=== PATIENT | male | born 1965 | race Caucasian/White ===

== ENCOUNTER → 2024-02-15 12:49 | Outpatient (BNVA) | payer OTHER, SELFPAY | PROVIDERS: Visit Provider Physician Assistant Medical | DX: S06.0X0A Concussion without loss of consciousness, initial encounter (principal); S16.1XXA Strain of muscle, fascia and tendon at neck level, initial encounter; W00.0XXA Fall on same level due to ice and snow, initial encounter | CPT/HCPCS: 72052; 99202 ==

== ENCOUNTER → 2024-02-17 14:53 | Outpatient (BNVA) | payer OTHER, SELFPAY | PROVIDERS: Visit Provider Physician Assistant Medical | DX: S06.0X0A Concussion without loss of consciousness, initial encounter (principal); S16.1XXA Strain of muscle, fascia and tendon at neck level, initial encounter; W00.0XXA Fall on same level due to ice and snow, initial encounter; R42 Dizziness and giddiness | CPT/HCPCS: 70450; 72125; 99214 ==

== ENCOUNTER → 2024-02-25 08:04 | Outpatient (BNVA) | payer OTHER, SELFPAY | PROVIDERS: Visit Provider Internal Medicine | DX: S06.0X0A Concussion without loss of consciousness, initial encounter (principal); W00.0XXA Fall on same level due to ice and snow, initial encounter; H53.8 Other visual disturbances; R51.9 Headache, unspecified | CPT/HCPCS: 99214 ==

== ENCOUNTER → 2024-03-06 10:49 | Outpatient (BNVA) | payer OTHER, SELFPAY | PROVIDERS: Visit Provider Physician Assistant Medical | DX: S06.0X0D Concussion without loss of consciousness, subsequent encounter (principal); W00.0XXD Fall on same level due to ice and snow, subsequent encounter; G43.709 Chronic migraine without aura, not intractable, without status migrainosus | CPT/HCPCS: 99213 ==

== ENCOUNTER → 2024-03-28 10:44 | Outpatient (BNVA) | payer OTHER, SELFPAY | PROVIDERS: Visit Provider Physician Assistant Medical | DX: F07.81 Postconcussional syndrome (principal); M54.2 Cervicalgia; S16.1XXD Strain of muscle, fascia and tendon at neck level, subsequent encounter; W00.0XXD Fall on same level due to ice and snow, subsequent encounter | CPT/HCPCS: 99214 ==

== ENCOUNTER 2024-04-11 18:51 | Outpatient (REF) | payer OTHER, SELFPAY | END 2024-04-11 18:52 | disposition home or self-care (01) | LOC: HO.MRI 18:51 | PROVIDERS: Visit Provider Internal Medicine | DX: R51.9 Headache, unspecified (principal) | CPT/HCPCS: 70551; 72141 ==

== ENCOUNTER → 2024-04-11 19:05 | Outpatient (BNV) | payer OTHER, SELFPAY | PROVIDERS: Visit Provider Radiology Diagnostic Radiology | DX: M48.02 Spinal stenosis, cervical region (principal); S06.0X0A Concussion without loss of consciousness, initial encounter | CPT/HCPCS: 70551; 72141 ==

== ENCOUNTER → 2024-04-19 11:04 | Outpatient (BNVA) | payer OTHER, SELFPAY | PROVIDERS: Visit Provider Physician Assistant Medical | DX: F07.81 Postconcussional syndrome (principal); M54.2 Cervicalgia | CPT/HCPCS: 99213 ==

== ENCOUNTER → 2024-05-15 13:32 | Outpatient (BNVA) | payer OTHER, SELFPAY | PROVIDERS: Visit Provider Physician Assistant Medical | DX: F07.81 Postconcussional syndrome (principal); M54.2 Cervicalgia | CPT/HCPCS: 99213 ==

== ENCOUNTER → 2024-06-05 16:05 | Outpatient (BNVA) | payer OTHER, SELFPAY | PROVIDERS: Visit Provider Physician Assistant Medical | DX: F07.81 Postconcussional syndrome (principal); M54.2 Cervicalgia; M54.81 Occipital neuralgia | CPT/HCPCS: 99213 ==

== ENCOUNTER → 2024-07-06 16:15 | Outpatient (BNVA) | payer OTHER, SELFPAY | PROVIDERS: Visit Provider Physician Assistant Medical | DX: M54.2 Cervicalgia (principal); F07.81 Postconcussional syndrome; M54.81 Occipital neuralgia | CPT/HCPCS: 99213 ==

== ENCOUNTER 2024-07-12 14:28 | Outpatient (AMB) | payer OTHER, SELFPAY ==
[2024-07-12 14:32] VITALS: BP 123/79; O2SAT 93; BMI 35.6
--- OUTSIDE RECORDS SUMMARY | 2024-07-12 14:32 | XMS_ITS | Encounter Summary ---
Author Organization [facility] Address [address] [place] [address] Care Team Providers Care Patrol Officer Name Role Phone Ernestine Trejo MD Primary Care Provider Leticia pierce Encounter Details Date Type Department Care Team Description 01/26/2017 Transfer Records Medical Records [address] [place] [id number] Abstract, Provider Social History Tobacco Use Types Packs/Day Years Used Date Smoking Tobacco: Never Assessed Sex Assigned at Date Recorded Not on file Job Start Date Occupation Industry Not on file Not on file Not on file documented as of this encounter Plan of Treatment Not on file documented as of this encounter Visit Diagnoses Not on filedocumented in this encounter Care Teams Patrol Officer Relationship Specialty Start Date End Date Ernestine Trejo MD PCP - General Internal Medicine 01/19/17 documented as of this encounter
--- OUTSIDE RECORDS SUMMARY | 2024-07-12 14:33 | XMS_ITS | Encounter Summary ---
Author Organization [facility] Address [address] [place] [address] Care Team Providers Care Parallel Computing Software Engineer Name Role Phone Ernestine Trejo MD Primary Care Provider Unava ilable Reason for Visit * Reason Comments E-prescribe Rx Request Encounter Details Date Type Department Care Team Description 03/05/2018 Refill Internal Medicine - [address], [address] [place] [address] Ernestine Trejo MD E-prescribe Rx Request Social History Tobacco Use Types Packs/Day Years Used Date Smoking Tobacco: Never Smokeless Tobacco: Never Alcohol Use Standard Drinks/Week Comments No 0 (1 standard drink = 0.6 oz pur e alcohol) Sex Assigned at Date Recorded Not on file Job Start Date Occupation Industry Not on file Not on file Not on file documented as of this encounter Miscellaneous Notes * Telephone Encounter - John Martinez M.A. - 03/09/2018 11:15 AM EST [employer] IN [employer] * Telephone Encounter - John Martinez M.A. - 03/09/2018 11:09 AM EST L/S 07/15/17 F/UP 04/05/18 documented in this encounter Plan of Treatment Not on file documented as of this encounter Visit Diagnoses Not on filedocumented in this encounter Care Teams Parallel Computing Software Engineer Relationship Specialty Start Date End Date Ernestine Trejo MD PCP - General Internal Medicine 01/19/17 documented as of this encounter
--- OUTSIDE RECORDS SUMMARY | 2024-07-12 14:33 | XMS_ITS | Clinical Summary ---
Author Organization [facility] Address [address] [place] [address] Phone Care Team Providers Care Emery Wheel Worker Name Role Phone Ernestine Trejo MD Primary Care Provider Allergies Active Allergy Reactions Criticality Noted Date Comments Lamotrigine Itching 12/13/2008 Medications amLODIPine (NORVASC) 10 mg tablet TAKE 1 TABLET BY MOUTH EVERY DAY 9 Active aspirin 81 mg EC tablet Take 81 mg by mouth daily. Active blood-glucose meter kit 1 Device by In Vitro route 2 times daily. 8 Active FREESTYLE LANCETS MISC USE TO TEST TWICE DAILY 8 Active gabapentin (NEURONTIN) 100 mg capsule Take 1 Cap by mouth daily. 9 Active glipiZIDE (GLUCOTROL XL) 10 mg 24 hr tablet Take 1 Tab by mouth 2 times daily. 9 Active blood sugar diagnostic (FreeStyle Lite Strips) test strip USE TO TEST TWICE DAILY 8 Active losartan-hydroC HLOROthiazide (HYZAAR) 100-25 mg per tablet TAKE 1 TABLET BY MOUTH EVERY DAY 9 Active metFORMIN (GLUCOPHAGE) 500 mg tablet Take 1 Tab by mouth 2 times daily (with meals). 9 Active metoprolol succinate (TOPROL-XL) 100 mg 24 hr tablet Take 1 Tab by mouth daily. 9 Active omeprazole (PriLOSEC) [address] capsule Take 1 Cap by mouth daily. 9 Active sildenafiL (VIAGRA) 100 mg tablet Take one tablet an hour before needed. 9 Active simethicone (MYLICON,GAS-X) 125 mg capsule Take 1 Cap by mouth 2 times daily. 9 Active simvastatin (ZOCOR) 20 mg tablet Take 20 mg by mouth at bedtime. Active cyanocobalamin (VITAMIN B-12) 1,000 mcg tablet Take 1,000 mcg by mouth daily. Active eszopiclone (LUNESTA) 3 mg tablet Take 1 tablet (3 mg total) by mouth at bedtime. Take immediately before bedtime Max Daily Amount: 3 mg 90 each 1 5 12/10/19 25 Active Active Problems Problem Noted Date Diagnosed Date Morbid obesity with BMI of 4 0.0-44.9, adult ([facility] V24, [facility] V28) 02/10/2024 Elevated AST (SGOT) 06/10/2017 Gall bladder polyp 01/06/2017 CTS (carpal tunnel syndrome) 01/03/2017 Overview (02/10/2024): bilateral Diabetes mellitus type 2 wit h neurological manifestations ([facility] V24, [facility] V28) 01/03/2017 DM (diabetes mellitus), type 2 with peripheral vascular complications ([facility] V24, [facility] V28) 01/03/2017 Erectile dysfunction 01/03/2017 Kidney stone 01/03/2017 Seizure ([facility] V24, [facility] V28) 01/03/2017 Overview (02/10/2024): 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 Insomnia 07/15/2016 Obstructive sleep apnea syndrome 07/15/2016 Lower esophageal ring 08/26/2013 Overview (02/10/2024): Comments: Mild. Dilated 03/31/2013. Renal cyst 10/01/2011 Overview (02/10/2024): Comments: 1.0 lower pole July 2011. Umbilical hernia 10/01/2011 Overview (02/10/2024): Comments: fat-containing on CT July 2011. Hearing loss 07/28/2011 Steatosis of liver 07/20/2011 Overview (02/10/2024): Comments: mild diffuse on CT July 2011. Cholesteatoma 08/29/2010 Overview (02/10/2024): Comments: Recurrent. Hydronephrosis 06/15/2010 Overview (02/10/2024): Comments: due to kidney stone. Migraine headache 06/15/2010 Encounters Date Type Department Care Team Description 06/12/2024 8:30 AM EDT [facility] [address] [facility] [address] [place] [address] Sheila Jama MD DIAN (obstructive sleep apnea) (Primary Dx); Primary insomnia from Last 3 Months Immunizations Name Administration Dates Next Due Influenza trivalent, 0.5mL, preservative free (Fluarix; FluLaval; Fluzone) ages 6mo and older (Afluria) 3 years and older 01/06/2017,02/25/2010 Pneumococcal conjugate 13 va lent (Prevnar 13, PCV13) 2mo and older 09/11/2016 Surgical History Surgery Date Site/Laterality Comments VASECTOMY PROCEDURE: HISTORICAL VASECTOMY HERNIA REPAIR PROCEDURE: HISTORICAL HERNIA REPAIR/UMB OTHER SURGICAL HISTORY PROCEDURE: HISTORICAL EAR SURGERY; COMMENT: cholesteatoma resection with temporal lobe abscess OTHER SURGICAL HISTORY PROCEDURE: HISTORICAL EAR SURGERY; COMMENT: tympanoplasty UPPER GASTROINTESTINAL ENDOSCOPY PROCEDURE: UPPER GI ENDOSCOPY/EXAM TYMPANOSTOMY TUBE PLACEMENT PROCEDURE: HISTORICAL PE TUBES ESOPHAGOGASTRODUODENOSCOPY PROCEDURE: VT ESOPHAGOGASTRODUODENOSCOPY TRANSORAL DIAGNOSTIC Medical History Medical History Date Comments DM (diabetes mellitus), type 2 with peripheral vascular complications (CMS/HCC V24, CMS/HCC V28) 01/03/2017 DX:DM (diabetes mellitus), type 2 with peripheral vascular complications (HCC) Erectile dysfunction 01/03/2017 DX:Erectile dysfunction CTS (carpal tunnel syndrome) 01/03/2017 DX: CTS (carpal tunnel syndrome); COMMENT: bilateral Diabetes mellitus type 2 wit h neurological manifestations ([facility] V24, [facility] V28) 01/03/2017 DX:Diabetes mellitus type 2 with neurological manifestations ([facility]) Seizure ([facility] V24, [facility] V28) 01/03/2017 DX:Seizure (HCC); COMMENT: 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 Gall bladder polyp 01/06/2017 DX:Gall bladd er polyp Hydronephrosis 06/15/2010 DX:Hydronephrosi s; COMMENT: Comments: due to kidney stone. Hearing loss 07/28/2011 DX:Hearing loss Hyperlipidemia 11/13/2016 DX:Hyperlipidemi a Hypertension 11/13/2016 DX:Hypertension Insomnia 07/15/2016 DX:Insomnia Lower esophageal ring 08/26/2013 DX:Lower e sophageal ring; COMMENT: Comments: Mild. Dilated 03/31/2013. Migraine headache 06/15/2010 DX:Migraine he adache Morbid obesity with BMI of 4 0.0-44.9, adult ([facility] V24, [facility] V28) 07/15/2016 DX:Morbid obesity wit h BMI of 40.0-44.9, adult ([facility]) Obstructive sleep apnea syndrome 07/15/2016 DX:Obstructive sleep apnea syndrome Renal cyst 10/01/2011 DX:Renal cyst; C OMMENT: Comments: 1.0 lower pole July 2011. Stricture of esophagus 09/11/2016 DX:Strict ure of esophagus; COMMENT: Comments: S/P Dilation 2004, 2007, March 2009. Umbilical hernia 10/01/2011 DX:Umbilical he rnia; COMMENT: Comments: fat-containing on CT July 2011. Social History Tobacco Use Types Packs/Day Years Used Date Smoking Tobacco: Never Smokeless Tobacco: Never Alcohol Use Standard Drinks/Week Comments No 0 (1 standard drink = 0.6 oz pur e alcohol) Sex and Gender Information Value Date Recorded Sex Assigned at Not on file Legal Sex Male 7:07 AM EST Gender Identity Not on file Sexual Orientation Not on file Obstetrics History Last Filed Vital Signs Vital Sign Reading Time Taken Comments Blood Pressure 120/76 06/12/2024 8:36 AM EDT Pulse 84 06/12/2024 8:36 AM EDT Temperature 36.1 ??C (97 ??F) 06/12/2024 8:36 AM EDT Respiratory Rate 20 06/12/2024 8:36 AM EDT Oxygen Saturation 93% 06/12/2024 8:36 AM EDT Inhaled Oxygen Concentration - - Weight 112 kg (247 lb 12.8 oz) 06/12/2024 8:36 A M EDT Height 172.7 cm (5' 8 ) 06/12/2024 8:36 AM EDT Body Mass Index 37.68 06/12/2024 8:36 AM EDT Plan of Treatment Upcoming Encounters Date Type Department Care Team (Late st Contact Info) Description 12/13/2024 8:30 AM EDT Office Visit Pulmonolgy - [place] [address] [place] [address] Sheila Jama MD [address] [facility] [address] [place] [address] Health Maintenance Due Date Last Done Comments Diabetes: Annual Foot Exam 10/26/1973 Diabetes: Annual Retina Eye Exam 10/26/1973 Diabetes: Annual GFR (Glomerular Filtration Rate) 04/28/2019 04/28/2018 Depression Screening 02/07/2022 HIV Screening 02/07/2022 Hepatitis C Screening 02/07/2022 Social Influencers of Health Screening 02/07/2022 Diabetes: Annual Urine Albumin-Creatinine Ratio (uACR) 02/10/2022 04/28/2018 Diabetes: Blood Sugar Control Test (HGBA1C) 02/10/2022 04/28/2018 Hypertension/CHF/CAD Annual BMP Blood Test 02/10/2022 04/28/2018 Pneumococcal Vaccine: 50+ Years (3 of 3 - PCV20 or PCV21) 06/05/2022 06/05/2017, 09/11/2016, 05/12/2012 Pneumococcal Vaccine: Pediatrics (0 to 5 Years) and At-Risk Patients (6 to 64 Years) (3 of 3 - PCV20 or PCV21) 06/05/2022 06/05/2017, 09/11/2016, 05/12/2012 Cholesterol Screening (Lipid Panel) 04/28/2023 04/28/2018 Colorectal Cancer Screening: Colonoscopy 04/29/2026 04/29/2016 DTaP,Tdap,and Td Vaccines (2 - Td or Tdap) 06/06/2027 06/05/2017 Zoster Vaccines Completed 10/12/2017, 06/05/2017 Influenza Vaccine Completed 12/06/2023, , 12/12/2021, Additional history exists COVID-19 Vaccine Completed 12/21/2023, 04/2021, 07/13/2020, Additional history exists RSV Immunization Adult Patients Completed 12/21/2023 HIB Vaccines Aged Out No longer eligi ble based on patient's age to complete this topic HPV Vaccines Aged Out No longer eligi ble based on patient's age to complete this topic Hepatitis A Vaccines Aged Out No long er eligible based on patient's age to complete this topic Hepatitis B Vaccines Aged Out No long er eligible based on patient's age to complete this topic IPV Vaccines Aged Out No longer eligi ble based on patient's age to complete this topic MMR Vaccines Aged Out No longer eligi ble based on patient's age to complete this topic Meningococcal ACWY Vaccine Aged Out N o longer eligible based on patient's age to complete this topic Meningococcal B Vaccine Aged Out No l onger eligible based on patient's age to complete this topic RSV Immunization Patients Under 20 months Aged Out No longer eligible based on patient's age to complete this topic Varicella Vaccines Aged Out No longer eligible based on patient's age to complete this topic Procedures Procedure Name Priority Date/Time Associated Diagnosis Comments URINE ALBUMIN CREATININE RATIO Routine 04/28/2018 ANNUAL BMP BLOOD TEST Routine 04/28/2018 HEMOGLOBIN A1C Routine 04/28/2018 LIPID PANEL Routine 04/28/2018 COLONOSCOPY Routine 04/29/2016 from Last 3 Months or Most Recently Relevant to Health Maintenance Results * Urine Albumin Creatinine Ratio (04/28/2018) Pathologist [facility] Urine Albumin Creatinine Ratio Abstracted Result [facility] Provider HEALTH MAINTENANCE Final Result * Annual BMP Blood Test (04/28/2018) Pathologist [facility] Annual BMP Blood Test Abstracted Result [facility] HEALTH MAINTENANCE Final Result * (ABNORMAL) Hemoglobin A1c (04/28/2018) [facility] Hemoglobin A1C 8.3(A) <=6.5 % Blood Venous blood specimen / Unknown Result [facility] Provider LAB BLOOD ORDERABLES Dilma l Result * (ABNORMAL) Lipid panel (04/28/2018) [facility] LDL/HDL Ratio 5(A) 0 - 4 Triglycerides 121 0 - 150 mg/dL Cholesterol 180 0 - 200 mg/dL HDL 39(A) >=40 mg/dL LDL Cholesterol 117(A) 0 - 100 mg/dL Blood Venous blood specimen / Unknown Result [facility] Provider LAB BLOOD ORDERABLES Dilma l Result * Colonoscopy (04/29/2016) [facility] Colonoscopy Abstracted, no interpretation Anatomical Region Laterality Modality Other Result [facility] HEALTH MAINTENANCE Final Result from Last 3 Months or Most Recently Relevant to Health Maintenance Insurance [employer] Care Teams Emery Wheel Worker Relationship Specialty Start Date End Date Ernestine Trejo MD [address] [place] [id number] PCP - General Internal Medicine 01/19/17
--- OUTSIDE RECORDS SUMMARY | 2024-07-12 14:33 | XMS_ITS | Clinical Summary ---
Author Organization [facility] Address [address] [place] [address] Care Team Providers Care Proteomics Scientist Name Role Phone Unavailable Primary Care Provider Unavailabl e Social History Tobacco Use Types Packs/Day Years Used Date Smoking Tobacco: Never Assessed Sex and Gender Information Value Date Recorded Sex Assigned at Not on file Legal Sex Male 8:05 PM EDT Gender Identity Not on file Sexual Orientation Not on file Plan of Treatment Health Maintenance Due Date Last Done Comments Hepatitis C Screening 1965 DTaP/Tdap/Td (1 - Tdap) 10/26/1981 Pneumococcal 50+ years (1 of 1 - PCV) 10/26/2013 Zoster (Shingrix) (1 of 2) 10/26/2013 COVID-19 Vaccine ( - 2023-2 5 season) 2023 Influenza (#1) 2023 RSV (1 - 1-dose 75+ series) 10/26/2038 HPV Vaccine Aged Out No longer eligi ble based on patient's age to complete this topic Hep A Aged Out No longer eligi ble based on patient's age to complete this topic Hep B Aged Out No longer eligi ble based on patient's age to complete this topic Hib Aged Out No longer eligi ble based on patient's age to complete this topic Meningococcal ACWY Aged Out No longer eligible based on patient's age to complete this topic Zoster (Zostavax) Discontinued
--- OUTSIDE RECORDS SUMMARY | 2024-07-12 14:33 | XMS_ITS | Encounter Summary ---
Author Organization [facility] Address [address] [place] [address] Care Team Providers Care Architectural Modeler Name Role Phone Ernestine Trejo MD Primary Care Provider Leticia pierce Encounter Details Date Type Department Care Team Description 06/09/2023 Telephone Pulmonology - [place] [address] [facility] [address] [place] [address] Sheila Jama MD [address] [place] [address] Social History Tobacco Use Types Packs/Day Years [...] encounter Miscellaneous Notes * Telephone Encounter - Esmer Goss M.A. - 06/11/2023 10:15 AM EDT There is no compliance report for this patient in [facility]. I have also contacted [facility] to see if maybe he wasn't linked in [facility] however they stated that they have the patient as inactive in theirsystem. Please advise. * Telephone Encounter - Sheila Jama MD - 06/09/2023 5:17 PM EDT Please get a complianc ereport for his CPAP documented in this encounter Plan of Treatment Not on file documented as of this encounter Visit Diagnoses Not on filedocumented in this encounter Care Teams Architectural Modeler Relationship Specialty Start Date End Date Ernestine Trejo MD PCP - General Internal Medicine 01/19/17 documented as of this encounter
--- OUTSIDE RECORDS SUMMARY | 2024-07-12 14:33 | XMS_ITS | Encounter Summary ---
Author Organization [facility] Address [address] [place] [address] Care Team Providers Care Robotic Machine Operator Name Role Phone Ernestine Trejo MD Primary Care Provider Leticia pierce Encounter Details Date Type Department Care Team Description 03/16/2017 Orders Only Pulmonology - [place] [address] [facility] [address] [place] [address] Sheila Jama MD [address] [place] [address] Insomnia, unspecified type (Primary Dx) Social History Tobacco Use Types Packs/Day Years [...] documented as of this encounter Visit Diagnoses Diagnosis Insomnia, unspecified type- Primary documented in this encounter Care Teams Robotic Machine Operator Relationship Specialty Start Date End Date Ernestine Trejo MD PCP - General Internal Medicine 01/19/17 documented as of this encounter
--- OUTSIDE RECORDS SUMMARY | 2024-07-12 14:33 | XMS_ITS | Encounter Summary ---
Author Organization [facility] Address [address] [place] [address] Care Team Providers Care Manager Facility Name Role Phone Ernestine Trejo MD Primary Care Provider Leticia pierce Encounter Details Date Type Department Care Team Description 08/16/2019 Telephone Pulmonology - [place] [address] [facility] [address] [place] [address] Sheila Jama MD [address] [place] [address] Social History Tobacco Use Types [...] on filedocumented in this encounter Care Teams Manager Facility Relationship Specialty Start Date End Date Ernestine Trejo MD PCP - General Internal Medicine 01/19/17 documented as of this encounter
--- OUTSIDE RECORDS SUMMARY | 2024-07-12 14:33 | XMS_ITS | Encounter Summary ---
Author Organization [facility] Address [address] [place] [address] Care Team Providers Care Confectionery Drops Machine Operator Name Role Phone Ernestine Trejo MD Primary Care Provider Leticia pierce Encounter Details Date Type Department Care Team Description 12/23/2017 Hospital Medical Records [address] [place] [address] Trish Munson MD [address] [place] [id number] Social History Tobacco Use Types Packs/Day Years [...] on filedocumented in this encounter Care Teams Confectionery Drops Machine Operator Relationship Specialty Start Date End Date Ernestine Trejo MD PCP - General Internal Medicine 01/19/17 documented as of this encounter
--- OUTSIDE RECORDS SUMMARY | 2024-07-12 14:33 | XMS_ITS | Encounter Summary ---
Author Organization [facility] Address [address] [place] [address] Care Team Providers Care Sky Line Yarder Name Role Phone Ernestine Trejo MD Primary Care Provider Unava ilable Reason for Visit * Reason Comments E-prescribe Rx Request Encounter Details Date Type Department Care Team Description 03/05/2021 Refill Pulmonology - [place] [address] [facility] [address] [place] [address] Sheila Jama MD [address] [place] [address] E-prescribe Rx Request Social History Tobacco Use [...] encounter Miscellaneous Notes * Telephone Encounter - Tamia Cortez - 03/21/2021 10:16 AM EST Patient would like script to be: E-PRESCRIBED/FAXED TO PHARMACY WHEN WAS THE PATIENT'S LAST APPOINTMENT WITH THE PRESCRIBING PROVIDER? 12/22/19 Does patient have an upcoming appointment? No. Left message for patient to call to schedule a follow up (THE MEDICATION REQUESTED IS ON THE MED LIST ABOVE) All of the medications requested were on the CURRENT MEDS list Did you check the Pharmacy information above?: YES Patient wants: 30 -day supply Is this a mail order prescription request ? NO Patients current insurance carrier is: Payor: [employer] [facility] [employer] / Plan: POS $20 [place] [id number] /Product Type: PPO [id number] documented in this encounter Plan of Treatment Not on file documented as of this encounter Visit Diagnoses Not on filedocumented in this encounter Care Teams Sky Line Yarder Relationship Specialty Start Date End Date Ernestine Trejo MD PCP - General Internal Medicine 01/19/17 documented as of this encounter
--- OUTSIDE RECORDS SUMMARY | 2024-07-12 14:33 | XMS_ITS | Encounter Summary ---
Author Organization [facility] Address [address] [place] [address] Care Team Providers Care Making Department Preparer Name Role Phone Ernestine Trejo MD Primary Care Provider Leticia pierce Encounter Details Date Type Department Care Team Description 08/02/2019 Orders Only Pulmonology - [place] [address] [facility] [address] [place] [address] Sheila Jama MD [address] [place] [address] Insomnia, unspecified type (Primary Dx) [...] Primary documented in this encounter Care Teams Making Department Preparer Relationship Specialty Start Date End Date Ernestine Trejo MD PCP - General Internal Medicine 01/19/17 documented as of this encounter
--- OUTSIDE RECORDS SUMMARY | 2024-07-12 14:33 | XMS_ITS | Encounter Summary ---
Author Organization [facility] Address [address] [place] [address] Care Team Providers Care Steam Hand Name Role Phone Ernestine Trejo MD Primary Care Provider Unava ilable Reason for Visit * Reason Onset Date Comments refill request 08/17/2019 Encounter Details Date Type Department Care Team Description 08/17/2019 Refill Pulmonology - [place] [address] [facility] [address] [place] [id number] Sheila Jama MD [address] [place] [phone] refill request Social History Tobacco Use Types Packs/Day Years [...] encounter Miscellaneous Notes * Telephone Encounter - Robreta Mukherjee - 08/17/2019 10:36 AM EDT KAREN 12/20/2018 NEXT 12/22/2019 90 DAY SUPPLY documented in this encounter Plan of Treatment Not on file documented as of this encounter Visit Diagnoses Not on filedocumented in this encounter Care Teams Steam Hand Relationship Specialty Start Date End Date Ernestine Trejo MD PCP - General Internal Medicine 01/19/17 documented as of this encounter
--- OUTSIDE RECORDS SUMMARY | 2024-07-12 14:33 | XMS_ITS | Encounter Summary ---
Author Organization [facility] Address [address] [place] [address] Care Team Providers Care Audio Recording Engineer Name Role Phone Ernestine Trejo MD Primary Care Provider Unava ilable Reason for Visit * Reason Comments E-prescribe Rx Request Encounter Details Date Type Department Care Team Description 07/15/2018 Refill Adult Med - [place] [address] [place] [address] Scar Valenzuela MD E-prescribe Rx Request Social History Tobacco [...] encounter Miscellaneous Notes * Telephone Encounter - Lamar Valdez L.P.NRosa - 07/19/2018 2:37 PM EDT Called Ernestine Trejo new office she is on maternity leave till mid August Last appt 04/29/2018 for a PE Ernestine Trejo Lab Results Component Value Date NA 140 04/28/2018 K 4.1 04/28/2018 CO2 27 04/28/2018 CL 105 04/28/2018 BUN 14 04/28/2018 CREAT 1.00 04/28/2018 GLU 193 04/28/2018 CA 9.3 04/28/2018 GFR > 60 04/28/2018 * Telephone Encounter - Bernard Simon - 07/19/2018 1:25 PM EDT Patient is going to be following Dr. Trejo. But he needs enough medication to be called in for him till he sees her at the end of September. * Telephone Encounter - Shana Martinez M.A. - 07/19/2018 10:25 AM EDT Patient needs a pcp and a follow up appointment. * Telephone Encounter - Estelle Hamm C.M.A. - 07/15/2018 4:22 PM EDT This is not our patient. documented in this encounter Plan of Treatment Not on file documented as of this encounter Visit Diagnoses Not on filedocumented in this encounter Care Teams Audio Recording Engineer Relationship Specialty Start Date End Date Ernestine Trejo MD PCP - General Internal Medicine 01/19/17 documented as of this encounter
--- OUTSIDE RECORDS SUMMARY | 2024-07-12 14:33 | XMS_ITS | Encounter Summary ---
Author Organization [facility] Address [address] [place] [address] Care Team Providers Care Daily Release And Dupe Printer Name Role Phone Ernestine Trejo MD Primary Care Provider Unava ilable Reason for Visit * Reason Onset Date Comments Faxed Refill 02/05/2020 Encounter Details Date Type Department Care Team Description 02/05/2020 Refill Pulmonology - [place] 175 [facility] [address] [place] [address] Sheila Jama MD [address] [place] [phone] Faxed Refill Social History Tobacco Use Types Packs/Day Years [...] encounter Miscellaneous Notes * Telephone Encounter - Chris Marr - 02/05/2020 11:56 AM EST KAREN- .Dec- 1 year f/u documented in this encounter Plan of Treatment Not on file documented as of this encounter Visit Diagnoses Diagnosis Insomnia, unspecified type documented in this encounter Care Teams Daily Release And Dupe Printer Relationship Specialty Start Date End Date Ernestine Trejo MD PCP - General Internal Medicine 01/19/17 documented as of this encounter
--- OUTSIDE RECORDS SUMMARY | 2024-07-12 14:33 | XMS_ITS | Encounter Summary ---
Author Organization [employer] [facility] Address [address] [place] [address] Care Team Providers Care Junior Systems Analyst Name Role Phone Ernestine Trejo MD Primary Care Provider Unava ilable Reason for Visit * Reason Comments E-prescribe Rx Request Encounter Details Date Type Department Care Team Description 03/19/2018 Refill Internal Medicine - [address], [address] [place] [address] Ernestine Trejo MD E-prescribe Rx Request Social [...] Telephone Encounter - John Martinez M.A. - 03/21/2018 12:43 PM EST Covering provider LAST SEEN 07/15/17 ?? F/UP 04/05/18 documented in this encounter Plan of Treatment Not on file documented as of this encounter Visit Diagnoses Not on filedocumented in this encounter Care Teams Junior Systems Analyst Relationship Specialty Start Date End Date Ernestine Trejo MD PCP - General Internal Medicine 01/19/17 documented as of this encounter
--- OUTSIDE RECORDS SUMMARY | 2024-07-12 14:33 | XMS_ITS | Encounter Summary ---
Author Organization [email or web address] [facility] Address [address] [place] [address] Care Team Providers Care Air Traffic Control Operator Name Role Phone Ernestine Trejo MD Primary Care Provider Unava ilable Reason for Visit * Reason Comments E-prescribe Rx Request Encounter Details Date Type Department Care Team Description 01/20/2019 Refill Pulmonology - [place] 175 [facility] [address] [place] [address] Sheila Jama MD [address] [place] [address] E-prescribe Rx Request Social History [...] encounter Miscellaneous Notes * Telephone Encounter - Karena Valdez - 01/20/2019 2:24 PM EST Patient would like script to be: E-PRESCRIBED/FAXED TO PHARMACY WHEN WAS THE PATIENT'S LAST APPOINTMENT WITH THE PRESCRIBING PROVIDER? 12/20/18 Does patient have an upcoming appointment? NO (THE MEDICATION REQUESTED IS ON THE MED LIST ABOVE) All of the medications requested were on the CURRENT MEDS list Did you check the Pharmacy information above?: YES Patient wants: 30 -day supply Is this a mail order prescription request ? NO Patients current insurance carrier is: Payor: [employer] / Plan: POS $20 [place] Oink /Product Type: PPO [id number] documented in this encounter Plan of Treatment Not on file documented as of this encounter Visit Diagnoses Not on filedocumented in this encounter Care Teams Air Traffic Control Operator Relationship Specialty Start Date End Date Ernestine Trejo MD PCP - General Internal Medicine 01/19/17 documented as of this encounter
--- OUTSIDE RECORDS SUMMARY | 2024-07-12 14:33 | XMS_ITS | Encounter Summary ---
Author Organization [facility] Address [address] [place] [address] Care Team Providers Care Cook Fruit Name Role Phone Ernestine Trejo MD Primary Care Provider Unava ilable Reason for Visit * Reason Comments E-prescribe Rx Request trazadone Encounter Details Date Type Department Care Team Description 07/17/2019 Refill Pulmonology - [place] 175 [facility] [address] [place] [address] Sheila Jama MD [address] [place] [phone] E-prescribe Rx Request (trazadone) Social History Tobacco Use Types Packs/Day Years [...] encounter Miscellaneous Notes * Telephone Encounter - Jennyfer Monteiro - 08/16/2019 4:47 PM EDT Patient is calling.. Patient has yet to receive this medication at the pharmacy. Please advise. * Telephone Encounter - Tamanna Busch - 08/10/2019 10:24 AM EDT Patient still hasn't received this prescription. Can you please call Gina at [phone] once script has been sent to the pharmacy. * Telephone Encounter - Summer Thomson - 08/08/2019 1:17 PM EDT Patient following up on this request. * Telephone Encounter - Talya Kenyn - 07/21/2019 11:00 AM EDT Patient calling checking on status, * Telephone Encounter - Talya Kenny - 07/18/2019 3:34 PM EDT Patient would like script to be: E-PRESCRIBED/FAXED TO PHARMACY WHEN WAS THE PATIENT'S LAST APPOINTMENT WITH THE PRESCRIBING PROVIDER? 12.20.2018 Does patient have an upcoming appointment? No upcoming (THE MEDICATION REQUESTED IS ON THE MED LIST ABOVE) All of the medications requested were on the CURRENT MEDS list Did you check the Pharmacy information above?: YES Patient wants: 30 -day supply Is this a mail order prescription request ? NO Patients current insurance carrier is: Payor: [employer] / Plan: POS $20 [place] 1500 /Product Type: PPO [id number] documented in this encounter Plan of Treatment Not on file documented as of this encounter Visit Diagnoses Not on filedocumented in this encounter Care Teams Cook Fruit Relationship Specialty Start Date End Date Ernestine Trejo MD PCP - General Internal Medicine 01/19/17 documented as of this encounter
--- OUTSIDE RECORDS SUMMARY | 2024-07-12 14:33 | XMS_ITS | Encounter Summary ---
Author Organization [email or web address] [facility] Address [address] [place] [address] Care Team Providers Care Clinical Trial Educator Name Role Phone Ernestine Trejo MD Primary Care Provider Unava ilable Reason for Visit * Reason Onset Date Comments Faxed Refill 01/19/2018 Encounter Details Date Type Department Care Team Description 01/19/2018 Telephone Internal Medicine - [address], [address] [place] [address] Ernestine Trejo MD Faxed Refill Social History Tobacco Use Types [...] encounter Miscellaneous Notes * Telephone Encounter - Sherly Georgesaulieu - 01/19/2018 10:11 AM EST Patient would like script to be: E-PRESCRIBED/FAXED TO PHARMACY When was the patients last office visit in Adult Medicine?: Appts were canceled When was the last time the patient saw their PCP? Same as above Does patient have an upcoming appointment? Yes 04/05/18 (THE MEDICATION IS NOT ON THE MED LIST AND IS IDENTIFIED BELOW): {MED LIST:09756) Med name: Glucose Monitor Dosage: N/a # of tablets: N/A Local pharmacy with request for 30 -day supply Instructions: Testing his sugar Did you check the pharmacy information above?: YES ([facility] on [address]) Patients would like to know if the script is being sent to the pharmacy or if she needs to fruit or nut picker the script. Patients current insurance carrier: Payor: [employer]I [place] / Plan: Bright.[employer] $20 [place] / Product Type: HMO [id number] documented in this encounter Plan of Treatment Not on file documented as of this encounter Visit Diagnoses Not on filedocumented in this encounter Care Teams Clinical Trial Educator Relationship Specialty Start Date End Date Ernestine Trejo MD PCP - General Internal Medicine 01/19/17 documented as of this encounter
--- OUTSIDE RECORDS SUMMARY | 2024-07-12 14:33 | XMS_ITS | Encounter Summary ---
Author Organization [facility] Address [address] [place] [address] Care Team Providers Care Retort Fireman Name Role Phone Ernestine Trejo MD Primary Care Provider Unava ilable Reason for Visit * Reason Comments E-prescribe Rx Request Encounter Details Date Type Department Care Team Description 01/08/2018 Refill Internal Medicine - [address], [address] [place] [address] Ernestine Trejo MD E-prescribe Rx Request Social [...] encounter Miscellaneous Notes * Telephone Encounter - Aaliyah Orellana M.A. - 01/19/2018 1:51 PM EST Lv07/15/17 Nv 04/05/18 * Telephone Encounter - Sherly Dhillon - 01/19/2018 10:53 AM EST Who is calling? Spouse: Name: Kayy Name of the medication Sildenafil Citrate What is the specific problem or interaction? Pharmacy never received the script for this medication. Can the script be sent again? If the patient is having a problem with taking the med - how long has the problem been going on? N/A * Telephone Encounter - John Martinez M.A. - 01/10/2018 11:35 AM EST LAST SEEN 12/06 F/UP 04/07 documented in this encounter Plan of Treatment Not on file documented as of this encounter Visit Diagnoses Not on filedocumented in this encounter Care Teams Retort Fireman Relationship Specialty Start Date End Date Ernestine Trejo MD PCP - General Internal Medicine 01/19/17 documented as of this encounter
--- OUTSIDE RECORDS SUMMARY | 2024-07-12 14:33 | XMS_ITS | Encounter Summary ---
Author Organization [employer] [facility] Address [address] [place] [address] Care Team Providers Care Residential Sales Associate Name Role Phone Ernestine Trejo MD Primary Care Provider Unava ilable Reason for Visit * Reason Comments E-prescribe Rx Request Encounter Details Date Type Department Care Team Description 04/05/2018 Refill Internal Medicine - [address], [address] [place] [address] Ernestine Trejo MD E-prescribe Rx Request Social [...] Telephone Encounter - John Martinez M.A. - 04/05/2018 8:57 AM EST L/s 07/15/17 ?? F/up 04/29/18 documented in this encounter Plan of Treatment Not on file documented as of this encounter Visit Diagnoses Not on filedocumented in this encounter Care Teams Residential Sales Associate Relationship Specialty Start Date End Date Ernestine Trejo MD PCP - General Internal Medicine 01/19/17 documented as of this encounter
--- OUTSIDE RECORDS SUMMARY | 2024-07-12 14:33 | XMS_ITS | Encounter Summary ---
Author Organization [email or web address] [facility] Address [address] [place] [address] Care Team Providers Care Software Development Advisor Name Role Phone Ernestine Trejo MD Primary Care Provider Unava ilable Reason for Visit * Reason Comments E-prescribe Rx Request Encounter Details Date Type Department Care Team Description 06/22/2017 Refill Adult Medicine [address] [address] Perry Sierra MD E-prescribe Rx Request Social History Tobacco [...] encounter Miscellaneous Notes * Telephone Encounter - Ilda Redding - 06/22/2017 8:47 AM EDT Patient would like script to be: E-PRESCRIBED/FAXED TO PHARMACY WHEN WAS THE PATIENT'S LAST APPOINTMENT IN ADULT MEDICINE? 05/24/17 WHEN WAS THE LAST TIME THE PATIENT SAW THEIR PCP? NO Does patient have an upcoming appointment? Yes 07/05/17 (THE MEDICATION REQUESTED IS ON THE MED LIST ABOVE) All of the medications requested were on the CURRENT MEDS list Did you check the Pharmacy information above?: YES Patient wants: 30 -day supply Is this a mail order prescription request ? NO Patients current insurance carrier is: Payor: [employer] [facility] [employer] / Plan: Soluble Systems $20 [place] [id number] / Product Type: HMO [id number] documented in this encounter Plan of Treatment Not on file documented as of this encounter Visit Diagnoses Not on filedocumented in this encounter Care Teams Software Development Advisor Relationship Specialty Start Date End Date Ernestine Trejo MD PCP - General Internal Medicine 01/19/17 documented as of this encounter
--- OUTSIDE RECORDS SUMMARY | 2024-07-12 14:33 | XMS_ITS | Encounter Summary ---
Author Organization [facility] [facility] Address [address] [place] [address] Care Team Providers Care Core Shaper Sides Name Role Phone Ernestine Trejo MD Primary Care Provider Leticia pierce Encounter Details Date Type Department Care Team Description 08/01/2019 Orders Only Pulmonology - [place] 175 [facility] [address] [place] [address] Sheila Jama MD [address] [place] [address] Social History Tobacco Use Types [...] on filedocumented in this encounter Care Teams Core Shaper Sides Relationship Specialty Start Date End Date Ernestine Trejo MD PCP - General Internal Medicine 01/19/17 documented as of this encounter
--- OUTSIDE RECORDS SUMMARY | 2024-07-12 14:33 | XMS_ITS | Encounter Summary ---
Author Organization [facility] Address [address] [place] [address] Care Team Providers Care Armature Winder Repair Name Role Phone Ernestine Trejo MD Primary Care Provider Unava ilable Reason for Visit * Reason Onset Date Comments APPOINTMENT 03/21/2021 Encounter Details Date Type Department Care Team Description 03/21/2021 Telephone Pulmonology - [place] 175 [facility] [address] [place] [address] Sheila Jama MD [address] [place] [address] APPOINTMENT Social History Tobacco Use Types Packs/Day Years [...] encounter Miscellaneous Notes * Telephone Encounter - Mary Gracia - 03/21/2021 4:28 PM EST Patient is booked for 06/06/2021 * Telephone Encounter - Tamia Cortez - 03/21/2021 10:15 AM EST Left message for patient to call to schedule a follow up appointment for DIAN with Dr. Jama (last seen 12/22/19). documented in this encounter Plan of Treatment Not on file documented as of this encounter Visit Diagnoses Not on filedocumented in this encounter Care Teams Armature Winder Repair Relationship Specialty Start Date End Date Ernestine Trejo MD PCP - General Internal Medicine 01/19/17 documented as of this encounter
--- OUTSIDE RECORDS SUMMARY | 2024-07-12 14:33 | XMS_ITS | Encounter Summary ---
Author Organization [facility] Address [address] [place] [address] Care Team Providers Care Bottled Beverage Inspector Name Role Phone Ernestine Trejo MD Primary Care Provider Unava ilable Reason for Visit * Reason Comments E-prescribe Rx Request Encounter Details Date Type Department Care Team Description 06/12/2019 Refill Pulmonology - [place] 175 [facility] [address] [place] [address] Sheila Jama MD [address] [place] [address] E-prescribe Rx Request Social History [...] Miscellaneous Notes * Telephone Encounter - Chris Andrewmudez - 06/12/2019 3:09 PM EDT Patient would like script to be: E-PRESCRIBED/FAXED TO PHARMACY WHEN WAS THE PATIENT'S LAST APPOINTMENT WITH THE PRESCRIBING PROVIDER? 12.20.2018 Does patient have an upcoming appointment? 1 year f/u per note (THE MEDICATION REQUESTED IS ON THE MED LIST ABOVE) All of the medications requested were on the CURRENT MEDS list Did you check the Pharmacy information above?: YES Patient wants: 30 -day supply Is this a mail order prescription request ? NO Patients current insurance carrier is: Payor: [employer] [facility] INXPO / Plan: POS $20 [place] [employer] /Product Type: PPO [id number] documented in this encounter Plan of Treatment Not on file documented as of this encounter Visit Diagnoses Not on filedocumented in this encounter Care Teams Bottled Beverage Inspector Relationship Specialty Start Date End Date Ernestine Trejo MD PCP - General Internal Medicine 01/19/17 documented as of this encounter
--- OUTSIDE RECORDS SUMMARY | 2024-07-12 14:33 | XMS_ITS | Encounter Summary ---
Author Organization [facility] Address [address] [place] [address] Care Team Providers Care Shore Worker Name Role Phone Ernestine Trejo MD Primary Care Provider Leticia pierce Encounter Details Date Type Department Care Team Description 10/26/2022 Refill Pulmonology - [place] 175 [facility] [address] [place] [address] Sheila Jama MD [address] [place] [address] Social History Tobacco Use Types [...] type documented in this encounter Care Teams Shore Worker Relationship Specialty Start Date End Date Ernestine Trejo MD PCP - General Internal Medicine 01/19/17 documented as of this encounter
--- OUTSIDE RECORDS SUMMARY | 2024-07-12 14:33 | XMS_ITS | Encounter Summary ---
Author Organization [facility] Address [address] [place] [address] Care Team Providers Care Sampler Radioactive Waste Name Role Phone Ernestine Trejo MD Primary Care Provider Unava ilable Reason for Visit * Reason Comments E-prescribe Rx Request Encounter Details Date Type Department Care Team Description 08/20/2020 Refill Pulmonology - [place] 175 [facility] [address] [place] [phone] Sheila Jama MD [address] [place] [phone] E-prescribe Rx Request Social History Tobacco Use [...] encounter Miscellaneous Notes * Telephone Encounter - Rebecca Castañeda - 08/20/2020 10:13 AM EDT Pls advise * Telephone Encounter - Itzel Saldana - 08/20/2020 9:59 AM EDT Rhianna 12/22/2019 Nov no appt booked documented in this encounter Plan of Treatment Not on file documented as of this encounter Visit Diagnoses Not on filedocumented in this encounter Care Teams Sampler Radioactive Waste Relationship Specialty Start Date End Date Ernestine Trejo MD PCP - General Internal Medicine 01/19/17 documented as of this encounter
--- OUTSIDE RECORDS SUMMARY | 2024-07-12 14:33 | XMS_ITS | Encounter Summary ---
Author Organization [facility] Address [address] [place] [address] Care Team Providers Care Youth Care Specialist Name Role Phone Ernestine Trejo MD Primary Care Provider Unava ilable Reason for Visit * Reason Comments E-prescribe Rx Request Encounter Details Date Type Department Care Team Description 02/17/2018 Refill Internal Medicine - [address], [address] [place] [address] Ernestine Trejo MD E-prescribe Rx Request Social [...] Telephone Encounter - John Martinez M.A. - 02/17/2018 11:08 AM EST LAST SEEN 07/15/17 F/UP 04/05/18 documented in this encounter Plan of Treatment Not on file documented as of this encounter Visit Diagnoses Not on filedocumented in this encounter Care Teams Youth Care Specialist Relationship Specialty Start Date End Date Ernestine Trejo MD PCP - General Internal Medicine 01/19/17 documented as of this encounter
--- OUTSIDE RECORDS SUMMARY | 2024-07-12 14:33 | XMS_ITS | Encounter Summary ---
Author Organization [facility] Address [address] [place] [address] Care Team Providers Care Tennis Player Name Role Phone Ernestine Trejo MD Primary Care Provider Unava ilable Reason for Visit * Reason Onset Date Comments refill request 02/12/2023 Encounter Details Date Type Department Care Team Description 02/12/2023 Refill Pulmonology - [place] 175 [facility] [address] [place] [address] Sheila Jama MD [address] [place] [phone] refill request Social History Tobacco Use Types [...] encounter Miscellaneous Notes * Telephone Encounter - Yamileth Holguin - 02/12/2023 11:36 AM EST Patient spouse Gina +VR calling looking for refill on medication. Should be good till March but the bottle has no more refills. KAREN 12/08/22 NOV 06/09/23 documented in this encounter Plan of Treatment Not on file documented as of this encounter Visit Diagnoses Diagnosis Insomnia, unspecified type documented in this encounter Care Teams Tennis Player Relationship Specialty Start Date End Date Ernestine Trejo MD PCP - General Internal Medicine 01/19/17 documented as of this encounter
--- OUTSIDE RECORDS SUMMARY | 2024-07-12 14:33 | XMS_ITS | Encounter Summary ---
Author Organization [facility] Address [address] [place] [address] Care Team Providers Care Fish Hatchery Specialist Name Role Phone Ernestine Trejo MD Primary Care Provider Unava ilable Reason for Visit * Reason Comments E-prescribe Rx Request Encounter Details Date Type Department Care Team Description 01/20/2018 Refill Internal Medicine - [address], [address] [place] [address] Ernestine Trejo MD E-prescribe Rx Request Social [...] Telephone Encounter - Aaliyah Orellana M.A. - 01/24/2018 3:19 PM EST Lv 07/15/17 Nv 04/05/17 documented in this encounter Plan of Treatment Not on file documented as of this encounter Visit Diagnoses Not on filedocumented in this encounter Care Teams Fish Hatchery Specialist Relationship Specialty Start Date End Date Ernestine Trejo MD PCP - General Internal Medicine 01/19/17 documented as of this encounter
--- OUTSIDE RECORDS SUMMARY | 2024-07-12 14:33 | XMS_ITS | Encounter Summary ---
Author Organization [facility] Address [address] [place] [address] Care Team Providers Care Bus Starter Name Role Phone Ernestine Trejo MD Primary Care Provider Unava ilable Reason for Visit * Reason Comments E-prescribe Rx Request Encounter Details Date Type Department Care Team Description 12/10/2017 Refill Pulmonology - [place] 175 [facility] [address] [place] [address] Sheila Jama MD [address] [place] [address] E-prescribe Rx Request Social History [...] encounter Miscellaneous Notes * Telephone Encounter - Kayy Stephenson - 12/12/2017 9:01 AM EDT Patient would like script to be: E-PRESCRIBED/FAXED TO PHARMACY WHEN WAS THE PATIENT'S LAST APPOINTMENT IN ADULT MEDICINE? 03/03/2017 WHEN WAS THE LAST TIME THE PATIENT SAW THEIR PCP? Does patient have an upcoming appointment? No-unable to reach left voicemaill to call for appointment due to refill request. Appt due (THE MEDICATION REQUESTED IS ON THE MED LIST ABOVE) All of the medications requested were on the CURRENT MEDS list Did you check the Pharmacy information above?: YES Patient wants: 30 -day supply Is this a mail order prescription request ? NO If the refill is from a FAXED refill request what is the RX # listed on the fax? N/A Patients current insurance carrier is: Payor: [employer] / Plan: [employer] $20 [place] 1 / Product Type: AudienceRate [employer] [id number] documented in this encounter Plan of Treatment Not on file documented as of this encounter Visit Diagnoses Not on filedocumented in this encounter Care Teams Bus Starter Relationship Specialty Start Date End Date Ernestine Trejo MD PCP - General Internal Medicine 01/19/17 documented as of this encounter
--- OUTSIDE RECORDS SUMMARY | 2024-07-12 14:33 | XMS_ITS | Encounter Summary ---
Author Organization [facility] Address [address] [place] [address] Care Team Providers Care Plant Taxonomist Name Role Phone Ernestine Trejo MD Primary Care Provider Unava ilable Reason for Visit * Reason Comments E-prescribe Rx Request Encounter Details Date Type Department Care Team Description 05/17/2018 Refill Adult Med - [facility] [place] [address] Ernestine Trejo MD E-prescribe Rx Request Social [...] encounter Miscellaneous Notes * Telephone Encounter - Shana Martinez M.A. - 05/17/2018 3:16 PM EDT Last appt 04/29/2018 No next appt documented in this encounter Plan of Treatment Not on file documented as of this encounter Visit Diagnoses Not on filedocumented in this encounter Care Teams Plant Taxonomist Relationship Specialty Start Date End Date Ernestine Trejo MD PCP - General Internal Medicine 01/19/17 documented as of this encounter
--- OUTSIDE RECORDS SUMMARY | 2024-07-12 14:33 | XMS_ITS | Encounter Summary ---
Author Organization [facility] Address [address] [place] [address] Care Team Providers Care Marketing Database Analyst Name Role Phone Ernestine Trejo MD Primary Care Provider Unava ilable Reason for Visit * Reason Comments E-prescribe Rx Request Encounter Details Date Type Department Care Team Description 04/04/2018 Refill Internal Medicine - [address], [address] [place] [address] Ernestine Trejo MD E-prescribe Rx Request Social [...] Telephone Encounter - John Martinez M.A. - 04/04/2018 10:40 AM EST L/s 07/15/17 F/up 04/29/18 documented in this encounter Plan of Treatment Not on file documented as of this encounter Visit Diagnoses Not on filedocumented in this encounter Care Teams Marketing Database Analyst Relationship Specialty Start Date End Date Ernestine Trejo MD PCP - General Internal Medicine 01/19/17 documented as of this encounter
--- OUTSIDE RECORDS SUMMARY | 2024-07-12 14:33 | XMS_ITS | Encounter Summary ---
Author Organization [facility] Address [address] [place] [address] Care Team Providers Care Select Banker Name Role Phone Ernestine Trejo MD Primary Care Provider Unava ilable Reason for Visit * Reason Comments E-prescribe Rx Request Encounter Details Date Type Department Care Team Description 02/01/2018 Refill Internal Medicine - [address], [address] [place] [address] Ernestine Trejo MD E-prescribe Rx Request Social [...] encounter Miscellaneous Notes * Telephone Encounter - Magi Wren - 02/01/2018 1:22 PM EST Last ov07/15/2017/ future appt 04/05/2018 Refill on Gabapentin 100 mg 30 tab documented in this encounter Plan of Treatment Not on file documented as of this encounter Visit Diagnoses Not on filedocumented in this encounter Care Teams Select Banker Relationship Specialty Start Date End Date Ernestine Trejo MD PCP - General Internal Medicine 01/19/17 documented as of this encounter
--- NOTE | 2024-07-12 14:34 | A.OFFVIS_ITS ---
Vital Signs 07/12/24 14:32 Height 5 ft 9 in Weight 241 lb BMI 35.6 BP 123/79 Blood Pressure Location Lt brachial Position Standing Pulse Oximetry (%) 93 Intake Visit Reasons: Neck Injury WC Allergies No Known Allergies Allergy (Verified 07/12/24 14:34) Medication List - Last Reconciled 07/12/24 by Lula Parra LPN amlodipine 10 mg PO DAILY atorvastatin 40 mg PO DAILY cyclobenzaprine 10 mg PO TID PRN empagliflozin (Jardiance) 25 mg PO DAILY eszopiclone 3 mg PO BEDTIME PRN glipizide ER 5 mg PO BID hydrochlorothiazide 25 mg PO DAILY lorazepam 0.5 mg PO BID PRN losartan 100 mg PO DAILY metoprolol tartrate 100 mg PO BID ondansetron 4 mg PO TID PRN oxycodone 5 mg PO BID PRN semaglutide (Ozempic) 0.25 mg subcut QWEEK trazodone 100 mg PO BEDTIME PRN HPI Comments Details: The patient is a 58-year-old male presenting with headaches and neck pain following a traumatic fall from a roof six months ago, resulting in a concussion and whiplash. The headaches have progressed to a daily occurrence with a poundi ng quality, relating back to severe head and neck injury during the incident. Initial treatments such as injections and medications have been ineffective, with Topamax causing hallucinations and Sumatriptan being overused with limited benefit. Despite utilizing trigger point injections and occipital nerve blocks with negative results, the patient continues physical therapy with minimal improvement, predominantly on the left side. Current symptoms include headaches and neck muscle pain exacerbated by certain neck movements and environmental factors like sunlight and relieved slightly by environmental adjustments such as darkness and cool temperatures. Patient is doing physical therapy twice weekly over last 2 months with no improvement Patient is followed by Neurology for his migraines. - Onset: Began six months ago post-fall from roof. - Timing: Initially sporadic, now daily and severe within an hour. - Quality: Pounding headache. - Location: Primarily the head; neck muscle pain, worse on the left side. - Radiating: Occasionally spreads from the neck to the surrounding areas. - Exacerbating Factors: Head elevation, bright sunlight. Pain is triggered by extension of the neck and palpation along upper cervical paraspinal muscles - Alleviating Factors: Dark, cool environments. - Impact: Severe interference with sleep, waking patient. - Interference: Interferes with ability to drive, perform daily activities, requires consistent medication use. - Affect: Pain causing significant emotional and functional distress. - Analgesia: Currently used medications include sumatriptan, discontinued by pcp due to overuse and risk of stroke. Cyclobenzaprine provided no relief. Amitriptyline provided minimal relief. No improvement with trigger point injections or occipital nerve blocks. - Adverse Effects: Hallucinations from Topamax, significant nausea associated with severe headaches. Emgality caused GI upset. - Activities of Daily Living: Pain interrupts sleep, driving, and general functional capabilities. - Aberrant Drug Related Behaviors: Overuse of sumatriptan observed, leading to withdrawal by PCP. [facility], [facility] Medical History (Updated 07/12/24 @ 16:24 by Shanta Oscar APRN, HOMERO) GERD (gastroesophageal reflux disease) High cholesterol Diabetes Hypertension Surgical History (Updated 07/12/24 @ 16:24 by Shanta Oscar APRN, LEADERSHIP RECRUITER) History of brain surgery History of ear surgery History of cholecystectomy Review of Systems Const Details: - Neurological: Reports headaches, nausea, denies tingling or shooting pain in arms. - Musculoskeletal: Reports neck pain and stiffness, denies other joint pain. - Gastrointestinal: Reports nausea at higher headache levels, leading to vomiting. - Cardiovascular: Denies known hypertension, last blood pressure reading normal. Physical Exam Vital Signs: Last Vital Signs BP 123/79 07/12/24 14:32 Pulse Ox 93 07/12/24 14:32 BMI result Body Mass Index 35.6 General: awake, alert, oriented. Answers questions appropriately. Fully engaged in examination. Skin: warm, dry, intact HEENT: Normocephalic. Hearing intact. Cardiac: External chest normal in appearance. Respiratory: No cough, audible wheezing or stridor. Abdomen: without gross distension. MS: No obvious swelling or deformities. Able to transition from sit to stand unassisted. Ambulates with bilaterally normal heel strike and toe off Cervical Spine: Visible inspection without gross abnormality Tenderness throughout bilateral upper trapezius muscles, left greater than right. Tender to palpation midline cervical vertebrae and cervical paraspinal muscles decreased cervical ROM in all planes. Pain worse with cervical extension Spurling compression test positive BUE strength 5/5 Elvey's tension test negative bilaterally Neurological: Oriented to person, place, time and situation. Thought process intact. No gait abnormalities appreciated. Psychiatric: Appropriate mood and affect. Good judgment and insight. Results Reviewed Results Reviewed: 04/11/24 MR CS FINDINGS: Craniocervical junction is intact. No bone marrow STIR signal abnormality. Multilevel marginal osteophyte formation and disc desiccation more conspicuous at C5-6 and C6-7 levels. Mild reverse curvature apex at C5-6. Gland the alignment is normal. The cervical spinal cord signal is normal. 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 C2-3: Left-sided disc osteophyte complex formation. No cord compression. No neuroforamina stenosis. C3-4: Broad-based disc osteophyte complex formation abutting the cord. No cord signal abnormality. Facet joint hypertrophy. Bilateral neuroforamina narrowing. C4-5: Broad-based disc osteophyte complex formation abutting the cord. No cord signal abnormality. Facet joint hypertrophy. Bilateral neuroforamina stenosis. C5-6: Broad-based disc osteophyte consummation abutting the cord. No cord signal abnormality. Bilateral neuroforamina stenosis. Bilateral facet joint hypertrophy. C6-7: There are CSF effacement of the thecal sac. Bilateral neuroforamina narrowing. Facet joint hypertrophy. C7-T1: No disc herniation. No neuroforamina stenosis. No cord signal abnormality. No prevertebral compartment hematoma, mass or fluid collection. Flow-void signal within the main vessels is normal. Codominant vertebral arteries. IMPRESSION: Multilevel cervical spondylosis C3 C7 resulting in central spinal canal stenosis abutting the cord without cord edema and or adenopathy. Bilateral neuroforamina stenosis on a multifactorial basis at C3-4 through C6-7. Assessment & Plan Assessment & Plan (1) Cervical spondylosis: Code(s): M47.812 - Spondylosis without myelopathy or radiculopathy, cervical region Category: Medical (2) Cervicogenic headache: Code(s): G44.86 - Cervicogenic headache Category: Medical (3) Migraines: Code(s): G43.909 - Migraine, unspecified, not intractable, without status migrainosus Category: Medical Plan The planned interventions include applying for workmen's compensation approval for diagnostic injections targeting the cervical spine area to investigate and potentially treat cervicogenic headaches. If diagnostic injections provide relief, a temporary nerve stimulator can be considered for further treatment. Continuation with physical therapy is essential to address neck muscle tension. Furthermore, it is crucial to reevaluate the patient's medication regime, particularly focusing on reducing the frequency of sumatriptan use and reassess ing amitriptyline dosage with neurology. Additional steps involve monitoring blood pressure given cardiovascular concerns associated with sumatriptan. During the visit, diagnostic injections were discussed as a next step. I explained the rationale, potential benefits, and limited additional discomfort expected. We explored subsequent interventions like a nerve stimulator if initial therapies show promise. The importance of continuing physical therapy for muscular relief was emphasized. I reviewed the withdrawal of sumatriptan due to overuse concerns, sharing the plan to consult neurology for potential medication alternatives and dosing adjustments, notably in regards to amitriptyline. We discussed lifestyle adaptations and environmental adjustments, like avoiding sunlight exposure during high risk periods. I instructed on how to manage acute exacerbations with available medications and encouraged ongoing blood pressure monitoring. Will schedule for fluoroscopy guided C3-C4 C5 medial branch blocks to be done in 2 sessions. Left-sided will be completed 1st with right side to follow in 1 week. Patient was informed and verbally consented to the use of an ambient scribe for clinic note documentation during this visit. Patient Instructions: - Keep a detailed pain diary to help manage and track headache triggers. - Continue with physical therapy sessions twice weekly to maintain muscle flexibility. - Limit sunlight exposure and utilize dark, cool environments to manage symptoms. - Use Sumatriptan sparingly and seek guidance from neurology regarding current migraine medication. - Monitor blood pressure regularly if possible, especially when using migraine medications. - Reach out promptly if experiencing severe headache or nausea symptoms. - Await workmen's compensation approval for diagnostic injections and follow up as scheduled. - Schedule follow-up appointment with neurology to review current medication regimen and explore higher doses or alternative treatments. Coding Level of Care Code New Pt Level 4 (70292) Complex EM visit Add On G2211 Diagnoses Cervical spondylosis M47.812 Cervicogenic headache G44.86 Migraines G43.909
== END 2024-07-12 15:23 | disposition home or self-care (01) ==
LOC: HO.PMC 14:29
PROVIDERS: PCP Internal Medicine; Visit Provider Registered Nurse Emergency
DX: M47.812 Spondylosis without myelopathy or radiculopathy, cervical region (principal); G44.86 Cervicogenic headache; G43.909 Migraine, unspecified, not intractable, without status migrainosus
CPT/HCPCS: 99204; G2211

== ENCOUNTER → 2024-07-12 14:28 | Outpatient (BNVA) | payer OTHER, SELFPAY | PROVIDERS: PCP Internal Medicine; Visit Provider Registered Nurse Emergency | DX: M47.812 Spondylosis without myelopathy or radiculopathy, cervical region (principal); G44.86 Cervicogenic headache; G43.909 Migraine, unspecified, not intractable, without status migrainosus | CPT/HCPCS: 99202 ==

== ENCOUNTER → 2024-08-08 16:11 | Outpatient (BNVA) | payer OTHER, SELFPAY | PROVIDERS: PCP Internal Medicine; Visit Provider Physician Assistant Medical | DX: M54.2 Cervicalgia (principal); F07.81 Postconcussional syndrome; M54.81 Occipital neuralgia | CPT/HCPCS: 99213 ==